=== PATIENT | female | born 1975 | race Caucasian/White ===

== ENCOUNTER 2016-11-08 02:35 | Emergency (ER) | payer MEDICAID ==
[~2016-11-08] VITALS: Ht 162.6 cm; Wt 174.5 kg
[2016-11-08 02:39] VITALS: Ht 162.6 cm; Wt 174.5 kg
[2016-11-08] MEDS ORDERED: LORAZEPAM 2 MG INJ IV ONE (03:00)
[2016-11-08 03:47] LABS: ADD SCAN DIFF NO
[2016-11-08 03:51] LABS: BASOPHILS % 0.8 % (0.0-2.0); EOSINOPHILS # 0.1 10^3/ul (0.0-0.5); EOSINOPHILS % 2.3 % (0.0-7.0); HEMATOCRIT 35.6 % (37.0-47.0); HEMOGLOBIN 11.4 g/dl (12.0-16.0); LYMPHOCYTES # 1.7 10^3/ul (0.8-2.9); LYMPHOCYTES % 47.7 % (15.0-51.0); MEAN CORPUSCULAR HEMOGLOBIN 27.6 pg (29.0-33.0); MEAN CORPUSCULAR VOLUME 86.2 fl (82.0-101.0); MEAN PLATELET VOLUME 12.5 fl (7.4-10.4); MONOCYTE # 0.2 10^3/ul (0.3-0.9); MONOCYTES % 4.2 % (0.0-11.0); NEUTROPHIL # 1.6 10^3/ul (1.6-7.5); PLATELET COUNT 115 10^3/UL (140-415); RED BLOOD COUNT 4.13 10^6/ul (4.20-5.40); RED CELL DISTRIBUTION WIDTH 15.2 % (11.5-14.5); WHITE BLOOD COUNT 3.5 10^3/ul (4.8-10.8)
[2016-11-08 04:04] LABS: INR 1.01; PROTIME 13.3 Sec (12.2-14.2)
[2016-11-08 04:05] LABS: PARTIAL THROMBOPLASTIN TIME 36.2 Sec (25.0-35.0)
[2016-11-08 04:29] LABS: ALBUMIN 4.5 g/dl (3.3-4.9); ALBUMIN/GLOBULIN RATIO 1.45; BILIRUBIN,INDIRECT 0.3 mg/dl (0-1.1); BILIRUBIN,TOTAL 0.3 mg/dl (0.2-1.3); CALCIUM 9.5 mg/dl (8.4-10.2); CREATININE 0.75 mg/dl (0.44-1.00); POTASSIUM 3.9 mmol/L (3.5-5.1); TOTAL PROTEIN 7.6 g/dl (6.1-8.1)
--- NOTE | 2016-11-08 04:35 | ERD ---
ER Documentation Chief Complaint Date/Time DATE: 11/08/16 TIME: 04:34 Chief Complaint CP X 2 DAYS WITH SOB. TOTAL BODY WEAKNESS/ACHES. NUMBNESS IN FINGERS HPI This a 41 year female chest pain for 2 days with shortness of breath. She also had weakness and body aches. Numbness in bilateral fingertips. Perioral numbness as well. She has been under a lot of stress lately secondary to home life difficulties. Denies suicidal homicidal ideation. Denies any other current issues. ROS All systems reviewed and are negative except as per history of present illness. PMhx/Soc History of Surgery: No Anesthesia Reaction: No Hx Neurological Disorder: No Hx Respiratory Disorders: No Hx Cardiac Disorders: Yes (HTN ) Hx Psychiatric Problems: No Hx Miscellaneous Medical Probl: Yes (SLEEP APNEA, DM, HIGH CHOLESTEROL, HYPOTHYROIDISM ) Hx Alcohol Use: No Hx Substance Use: No Hx Tobacco Use: No Smoking Status: Never smoker Physical Exam Vitals Vital Signs Date Time Temp Pulse Resp B/P Pulse Ox O2 Delivery O2 Flow Rate FiO2 11/08/16 03:10 67 13 134/87 89 Room Air 11/08/16 03:10 Nasal Cannula 2 11/08/16 02:39 95.5 69 22 132/83 95 Physical Exam Const: [] Head: Atraumatic Eyes: Normal Conjunctiva ENT: Normal External Ears, Nose and Mouth. Neck: Full range of motion..~ No meningismus. Resp: Clear to auscultation bilaterally Cardio: Regular rate and rhythm, no murmurs Abd: Soft, non tender, non distended. Normal bowel sounds Skin: No petechiae or rashes Back: No midline or flank tenderness Ext: No cyanosis, or edema Neur: Awake and alert Psych: Normal Mood and Affect Result Diagram: 11/08/16 0310 11/08/16 0310 Results 24 hrs Laboratory Tests Test 11/08/16 02:43 11/08/16 03:10 Bedside Glucose 132mg/dL White Blood Count 3.510^3/ul Red Blood Count 4.1310^6/ul Hemoglobin 11.4g/dl Hematocrit 35.6% Mean Corpuscular Volume 86.2fl Mean Corpuscular Hemoglobin 27.6pg Mean Corpuscular Hemoglobin Concent 32.0g/dl Red Cell Distribution Width 15.2% Platelet Count 81081^3/UL Mean Platelet Volume 12.5fl Neutrophils % 45.0% Lymphocytes % 47.7% Monocytes % 4.2% Eosinophils % 2.3% Basophils % 0.8% Nucleated Red Blood Cells % 0.0/100WBC Neutrophils # 1.610^3/ul Lymphocytes # 1.710^3/ul Monocytes # 0.210^3/ul Eosinophils # 0.110^3/ul Basophils # 0.010^3/ul Nucleated Red Blood Cells # 0.010^3/ul Prothrombin Time 13.3Sec Prothrombin Time Ratio 1.0 INR International Normalized Ratio 1.01 Activated Partial Thromboplast Time 36.2Sec Sodium Level 141mmol/L Potassium Level 3.9mmol/L Chloride Level 103mmol/L Carbon Dioxide Level 29mmol/L Anion Gap 13 Blood Urea Nitrogen 13mg/dl Creatinine 0.75mg/dl Glucose Level 128mg/dl Calcium Level 9.5mg/dl Total Bilirubin 0.3mg/dl Direct Bilirubin 0.00mg/dl Indirect Bilirubin 0.3mg/dl Aspartate Amino Transf (AST/SGOT) 40IU/L Alanine Aminotransferase (ALT/SGPT) 25IU/L Alkaline Phosphatase 44IU/L Troponin I Pending B-Type Natriuretic Peptide Pending Total Protein 7.6g/dl Albumin 4.5g/dl Globulin 3.10g/dl Albumin/Globulin Ratio 1.45 Current Medications Medications (Trade) Dose Ordered Sig/Shalonda Route PRN Reason Start Time Stop Time Status Last Admin Dose Admin Lorazepam (Ativan) 1 mg ONCE ONCE IV 11/08/16 03:00 11/08/16 03:01 DC 11/08/16 03:29 Procedures/MDM EKG: Rate/Rhythm: [Normal Sinus Rhythm] QRS, ST, T-waves: [No changes consistent w/ acute ischemia] Impression: [No evidence of ischemia or arrhythmia] Chest X-ray 1V Interpreted by me: Soft Tissue: No acute abnormalities Bones: No acute abnormalities Mediastinum/Cardiac Silhouette/Lungs: [No acute abnormalities] Patient's thoracic symptoms have stabilized while in the department and are stable for outpatient follow up. Exam and work up not consistent w/ ischemia, arrhythmia, PE or dissection. Departure Diagnosis: Primary Impression: Atypical chest pain Additional Impression: Anxiety Condition: Stable EVELYN GTZ Nov 08, 2016 04:35
[2016-11-08] MEDS ORDERED: LORA-441 PO (04:38)
[2016-11-08 04:40] LABS: TROPONIN-I 0.017 ng/ml (0.00-0.12)
[2016-11-08 05:03] VITALS: BP 121/62; PULSE 73; RESP 19
--- NOTE | 2016-11-08 05:22 | RADRPT ---
PROCEDURE: XR Chest. CLINICAL INDICATION: Chest pain TECHNIQUE: A single AP view of the chest was obtained. COMPARISON: None available FINDINGS: Lung volumes are low with compressive changes and vascular crowding. No focal airspace opacity, pleu ral effusion or pneumothorax is seen. The cardiomediastinal silhouette is within normal limits for size. The osseous structures are unremarkable. IMPRESSION: 1. Low lung volumes with compressive changes. 2. Otherwise, unremarkable chest x-ray. RPTAT: HH .Nahomi Garcia MD, MD Date Time Electronically viewed and signed by .Nahomi Garcia MD, on 11/08/2016 05:22 .G/
[2016-11-08] MEDS ORDERED: CIPR500T4 PO (05:52)
== END 2016-11-08 06:10 | disposition home or self-care (01) ==
LOC: E/R 02:35
DX: R07.89 Other chest pain (principal); F41.9 Anxiety disorder, unspecified; E11.9 Type 2 diabetes mellitus without complications; E03.9 Hypothyroidism, unspecified; I10 Essential (primary) hypertension; R06.02 Shortness of breath
CPT/HCPCS: 71010; 80053; 82962; 83880; 84484; 85025; 85610; 85730; 93005; J2060; 36415; 96374

== ENCOUNTER 2017-08-06 07:11 | Emergency (ER) | END 2017-08-06 10:12 | disposition home or self-care (01) ==

== ENCOUNTER 2018-06-23 15:03 | Emergency (ER) | payer SELFPAY ==
[~2018-06-23] VITALS: Ht 167.6 cm; Wt 131.0 kg
[~2018-06-23 15:03] MED LIST: LORA-441 PO
[2018-06-23 15:06] VITALS: BP 151/78; PULSE 81; RESP 16; Ht 167.6 cm; Wt 131.0 kg
== END 2018-06-23 21:00 | disposition left against medical advice (07) ==
LOC: E/R 15:03
DX: Z53.21 Procedure and treatment not carried out due to patient leaving prior to being seen by health care provider (principal)